=== PATIENT | male | born 1965 ===

== ENCOUNTER 2016-09-14 14:13 | Emergency (ER) | payer OTHER ==
[2016-09-14] MEDS ORDERED: ACETAMINOPHEN 325 MG TABLET ONE (15:23)
[2016-09-14] MEDS ORDERED: IBUPROFEN 600 MG TABLET ONE (15:23)
--- NOTE | 2016-09-14 15:45 | RAD ---
HISTORY: Fall on outstretched hand 2 days ago. Initial encounter. COMPARISON: None TECHNIQUE: Three views of the left hand FINDINGS: Bones: No fracture or dislocation. Joints: Unremarkable. Soft tissue: Normal. IMPRESSION: No fracture or dislocation.
== END 2016-09-14 16:16 | disposition home or self-care (01) ==
LOC: ED 14:13
DX: M79.642 Pain in left hand (principal); G25.81 Restless legs syndrome; J45.909 Unspecified asthma, uncomplicated; W18.30XA Fall on same level, unspecified, initial encounter; Y92.9 Unspecified place or not applicable
CPT/HCPCS: 73130; 99283 ×2; A9270 ×2